=== PATIENT | male | born 1955 | race Caucasian/White ===

== ENCOUNTER 2024-04-20 05:50 | Day surgery (SDC) | payer MEDICARE ==
[~2024-04-20] VITALS: Ht 175.3 cm; Wt 91.0 kg
[2024-04-20] VITALS (9 sets, daily range): BP systolic 99–132; BP diastolic 59–91
[~2024-04-20 05:50] MED LIST: ATOR80 PO; Aspir 8181 MG PO; LISI5 PO; METO25ER PO
[2024-04-20] MEDS ORDERED: NS 1,000 ML IV ONE ×2 (06:37→07:19)
[2024-04-20] MEDS ORDERED: Verapamil HCL 2.5 MG/ML 2ML Injection ONE (06:37)
[2024-04-20] MEDS ORDERED: NS 250 ML IV ONE (06:37)
[2024-04-20] MEDS ORDERED: Heparin Sodium 1000 Units/ML 10ML MDV ONE (06:37)
[2024-04-20] MEDS ORDERED: Nitroglycerin 2 MG/20 ML BTL ONE (06:45)
[2024-04-20] MEDS ORDERED: FentaNYL Citrate 50 MCG/ML 2 ML Injection ONE (07:18)
[2024-04-20] MEDS ORDERED: Midazolam HCl 1MG / ML 2ML Vial ONE (07:19)
--- NOTE | 2024-04-20 08:15 | NUR ---
dr garcía at bedside discussing procedure and future plan of care w/ pt and . pt sitting up in recliner drinking coffee. radial site soft and non-tender per pt. no bleeding noted.
--- NOTE | 2024-04-20 09:05 | NUR ---
radial artery site soft and non-tender per pt. no bleeding noted. pt given another cup of coffee. pt refused food.
--- NOTE | 2024-04-20 10:00 | NUR ---
2cc removed from tr band. site soft and non-tender per pt. no bleeding noted.
--- NOTE | 2024-04-20 10:20 | NUR ---
2CC REMOVED FROM TR BAND. RADIAL SITE SOFT AND NON-TENDER PER PT. NO BLEEDING NOTED.
--- NOTE | 2024-04-20 10:48 | NUR ---
tr band fully deflated at 1030. radial site soft and non-tender per pt. no bleeding noted.
--- NOTE | 2024-04-20 11:06 | NUR ---
pt given dc instructions and verbalized understanding. iv out. pt chnaged. cloth dot, arm board, and sling applied. radial site soft and non-tender per pt. no bleeding noted. pt refused wc. pt ambulated to lby. to drive pt home.
== END 2024-04-20 11:15 | disposition home or self-care (01) ==
LOC: MHTC 05:50
DX: I25.10 Atherosclerotic heart disease of native coronary artery without angina pectoris (principal); T82.855A Stenosis of coronary artery stent, initial encounter; I35.0 Nonrheumatic aortic (valve) stenosis; R00.1 Bradycardia, unspecified; I25.2 Old myocardial infarction; I10 Essential (primary) hypertension; E78.5 Hyperlipidemia, unspecified; F17.200 Nicotine dependence, unspecified, uncomplicated; Z79.82 Long term (current) use of aspirin; Z79.899 Other long term (current) drug therapy
CPT/HCPCS: 76937; 93454; 99152; C1769; C1887; C1894; J1644; J2250; J3010; J7030; J7050; Q9967